=== PATIENT | female | born 1995 | race Caucasian/White ===

== ENCOUNTER 2016-12-28 14:30 | Emergency (ER) | payer SELFPAY ==
[~2016-12-28] VITALS: Ht 162.6 cm; Wt 88.5 kg
[2016-12-28 16:35] VITALS: BP 125/41
== END 2016-12-28 16:35 | disposition home or self-care (01) ==
LOC: ED 14:30
DX: B34.9 Viral infection, unspecified (principal)

== ENCOUNTER 2020-04-12 11:25 | Emergency (ER) | payer OTHER, SELFPAY ==
[~2020-04-12] VITALS: Ht 167.6 cm; Wt 89.8 kg
[2020-04-12 12:03] VITALS: Ht 167.6 cm; Wt 89.8 kg
[2020-04-12 12:42] VITALS: BP 110/57
== END 2020-04-12 12:42 | disposition home or self-care (01) ==
LOC: ED 11:25
DX: R05 Cough (principal); Z20.828 Contact with and (suspected) exposure to other viral communicable diseases
CPT/HCPCS: Q0092; U0003-CS